=== PATIENT | male | born 1995 | race Caucasian/White ===

== ENCOUNTER 2024-05-19 01:14 | Inpatient (IN) | payer SELFPAY ==
[~2024-05-19] VITALS: Ht 160 cm; Wt 58.1 kg
[2024-05-19] MEDS ORDERED: IBUP-2029 MT (02:57)
[2024-05-19] MEDS: ACETAMINOPHEN 325MG TABLET PO ONE (04:04)
[2024-05-19 06:44] LABS: BASOPHILS % 0.6 % (0.0-2.0); EOSINOPHILS % 0.9 % (0.0-5.0); HEMATOCRIT. 43.9 % (42.0-52.0); MEAN CORPUSCULAR HEMOGLOBIN 31.8 pg (28.0-32.0); MEAN CORPUSCULAR HGB CONC 34.1 g/dL (31.0-37.0); MEAN CORPUSCULAR VOLUME 93.3 fL (80.0-94.0); MONOCYTES % 13.5 % (2.0-8.0); PLATELET 217 x1000/uL (130-400); WHITE BLOOD COUNT 8.9 x1000/uL (4.5-11.0)
[2024-05-19 06:52] LABS: CARBON DIOXIDE 31 mEq/L (21-32); CHLORIDE 101 mEq/L (98-107); POTASSIUM 3.7 mEq/L (3.5-5.1); SODIUM 137 mEq/L (136-145)
[2024-05-19 06:53] LABS: CALCIUM 9.5 mg/dL (8.7-10.4)
[2024-05-19 06:57] LABS: CREATININE 0.8 mg/dL (0.6-1.3); GLUCOSE 107 mg/dL (70-105)
[2024-05-19 06:58] LABS: UREA NITROGEN BLOOD 11 mg/dL (9-23)
[2024-05-19 06:59] LABS: ALANINE AMINOTRANSFERASE 41 IU/L (10-49); ALBUMIN 4.6 g/dL (3.2-4.8); ASPARTATE AMINOTRANSFERASE 41 IU/L (<34)
[2024-05-19 07:00] LABS: BILIRUBIN DIRECT 0.2 mg/dL (<=3.0); PROTEIN TOTAL 7.1 g/dL (6.0-8.3)
[2024-05-19] MEDS ORDERED: CLONIDINE 0.1MG TABLET PO PRN (19:45)
[2024-05-19] MEDS ORDERED: MAGNESIUM/ALUMINUM HYDROXIDE/SIMETHICONE 30ML UDC PO PRN (19:45)
[2024-05-19] MEDS ORDERED: GUAIFENESIN 200MG/10ML SUGAR FREE UDC PO PRN (19:45)
[2024-05-19] MEDS ORDERED: ACETAMINOPHEN 325MG TABLET PO PRN ×2 (19:45)
[2024-05-19] MEDS ORDERED: DOCUSATE SODIUM 100MG CAPSULE PO PRN (19:45)
[2024-05-19] MEDS ORDERED: ONDANSETRON HCL 4MG/2ML INJ IV PRN (19:45)
[2024-05-19] MEDS ORDERED: IPRATROPIUM/ALBUTEROL 0.5-3(2.5)MG/3ML NEB NEB PRN (19:45)
[2024-05-19] MEDS ORDERED: ZOLPIDEM TARTRATE 5MG TABLET PO PRN (19:45)
[2024-05-19] MEDS ORDERED: NITROGLYCERIN 0.4MG TABLET SL SL PRN (19:45)
[2024-05-19 20:15] VITALS: BP 128/86; PULSE 82; RESP 20; TEMP 36.50292; TEMP 36.5292; O2SAT 97
[2024-05-19 21:06] LABS: IRON 126 ug/dL (65-175)
[2024-05-19 21:09] LABS: TOTAL IRON BINDING CAPACITY 312 ug/dl (250-425)
[2024-05-19 21:12] LABS: VITAMIN B12 SERUM 390 pg/mL (211-911)
[2024-05-19 21:13] LABS: FOLIC ACID (FOLATE) SERUM 11.58 ng/mL (>5.38); T4 FREE 1.11 ng/dL (0.89-1.76); THYROID STIMULATING HORMONE 1.76 uIU/mL (0.55-4.78)
[2024-05-20] VITALS: BP 118/78; PULSE 74; RESP 20; TEMP 36.6696; O2SAT 98
[2024-05-20] MEDS: DEXT 5%/LACTATED RINGERS 1,000 ML IV SCH (04:44)
[2024-05-20] MEDS: KETOROLAC 15MG/ML VIAL IV PRN (04:44)
[2024-05-20 08:00] VITALS: PULSE 60; RESP 18; TEMP 36.114; O2SAT 98
[2024-05-20] MEDS: PANTOPRAZOLE SODIUM 40 MG/VIAL IV SCH (08:37)
[2024-05-20 12:00] VITALS: BP 125/56; PULSE 66; RESP 18; TEMP 35.8362; TEMP 35.83620; O2SAT 97
[2024-05-20 14:16] VITALS: BP 125/56; PULSE 66; TEMP 96.6; O2SAT 97
== END 2024-05-20 15:50 | disposition home or self-care (01) | DRG 55 ==
LOC: ER 01:14 → 8WST 06:44 → EDBEDREQ 06:51 → EDBEDREQTM 06:51
PROVIDERS: ADMIT Internal Medicine; ATTEND Internal Medicine
DX: S06.360A Traumatic hemorrhage of cerebrum, unspecified, without loss of consciousness, initial encounter (principal); S42.009A Fracture of unspecified part of unspecified clavicle, initial encounter for closed fracture; V00.141A Fall from scooter (nonmotorized), initial encounter; Y93.66 Activity, soccer; Y92.322 Soccer field as the place of occurrence of the external cause; Y99.8 Other external cause status
CPT/HCPCS: 36415; 73030; 80048; 80076; 82607; 82746; 83540; 83550; 84439; 84443; 85025; 99285; J1885; J2405; J2470

== ENCOUNTER 2024-07-25 15:34 | Emergency (ER) | payer SELFPAY ==
[~2024-07-25 15:34] MED LIST: IBUP-2029 MT
== END 2024-07-25 17:11 | disposition left against medical advice (07) ==
LOC: ER 15:34
DX: Z00.00 Encounter for general adult medical examination without abnormal findings (principal); Z53.21 Procedure and treatment not carried out due to patient leaving prior to being seen by health care provider